=== PATIENT | female | born 1960 | race Caucasian/White ===

== ENCOUNTER 2023-03-05 01:14 | Outpatient (CLI) | payer BC, SELFPAY ==
--- NOTE | 2023-03-05 | DI.NM_ITS ---
APPROVED REPORT Exam: Exercise Treadmill Patient Location: Out-Patient Room/Bed: Stress Nurse: Mary Leung RN Ordering Provider:CANDACE HARLEEN, Contact Number: [phone] BMI: 29.95 Baseline Rhythm: Sinus Rhythm Indications: Chest pain Medical History Medical History: Neuropathym, osetoarthritis, osteopenia, Graves Disease R TKA Cardiac Medications: Cholecalciferol, vitamin B, vitamin B, Vitmain K2 Allergies: bee pollen Cardiac Risk Factors: Family Hx, exposure to second hand smoke as a child Previous Cardiac Procedures: None Pretest Chest Pain Characteristics: None Exercise History: Indeterminate Physical Disabilities: R knee Lung Sounds: Clear to auscultation Heart Sounds: Regular Stress Test Details Test: Exercise stress testing was performed using a Prashant protocol. Nuclear Acquisition: Rest Tc-99m/Stress Tc-99m 1 day Rest Isotope: Tc-99m Sestamibi. Dose: 10.0 Date: 03/05/2023 Injection Time: 0845 Stress Isotope: Tc-99m Sestamibi. Dose: 31.8 Date: 03/05/2023 Injection Time: 1010 HR Resting HR Supine: 62 bpm Max Heart Rate (APMHR): 156.680234 bpm Resting HR Standin bpm Target HR (85% APMHR): 132.039296 bpm Max HR Achieved: 148 bpm % of APMHR: 94.87 Recovery HR: 82 bpm HR response to stress: Accelerated HR response to stress BP Resting BP Supine: 110/72 mmHg Resting BP Standin/70 mmHg Max BP: 182/82 mmHg Recovery BP: 122/76 mmHg BP response to stress: Normal blood pressure response to stress. ECG Resting ECG: Sinus Rhythm Ectopy: None Stress ECG: Sinus Tachycardia ST Change: No significant ST segment changes noted Arrhythmia: Occasional PVC's Recovery ECG: Sinus Rhythm Recovery ST Change: No significant ST segment changes noted Recovery Arrhythmia: Occasional PAC's Clinical Reason for Termination: Target HR Achieved, Fatigue Stress Symptoms: General Fatigue Exercise duration: 02 min52 sec Highest Stage Reached: Stage 1: 1.7 mph at 10% grade. Exercise capacity: 4.64 METs Angina Score: None Almaguer Treadmill Score: 2.5 Rate Pressure Product: [id number] Stress ECG Conclusion 1. Electrocardiogram was within normal limits 2. Patient exercised on the Prashant protocol and completed a workload of 4.64 METS, stopping due to fat igue 3. Accelerated heart rate response to exercise. The patient achieved 95% of predicted heart rate for age 4. Normal blood pressure response to exercise 5. There was no electrocardiographic evidence of myocardial ischemia 6. There were sporadic atrial and ventricular ectopic beats 7. See MPI report Almaguer Treadmill Score is 2.5 which is Moderate risk. Stress Test Summary STAGE Time (mins) Speed (mph) Grade (%) HR BP SpO2 SYMPTOMS METS Supine 62 110/72 95 Standing 71 118/70 97 1 3 1.7 10 145 4.5 1 min recovery 105 182/82 90 3 min recovery 83 148/92 96 6 min recovery 82 122/76 98 MPI Conclusion Myocardial perfusion is normal. There is no evidence of ischemia or prior infarction EF is 69% with normal wall motion Radiologist Interpretation Radiologist Interpretation by: Brett Ambrose MD Interpretation Date/Time: 03/05/2023 16:35:41
== END 2023-03-05 01:34 ==
LOC: DI 01:15
PROVIDERS: PCP Family Medicine; Visit Provider Family Medicine
DX: R07.9 Chest pain, unspecified (principal)
CPT/HCPCS: 78452; 93017